=== PATIENT | female | born 1995 | race Caucasian/White ===

== ENCOUNTER → 2024-06-29 14:14 | Outpatient (REF) | payer OTHER, SELFPAY | LOC: HWRAD 14:14 | PROVIDERS: ATTENDING PHYSICIAN Nurse Practitioner Family; FAMILY PHYSICIAN Nurse Practitioner | DX: Z32.01 Encounter for pregnancy test, result positive (principal) | CPT/HCPCS: 76801; 76817 ==

== ENCOUNTER → 2024-07-12 13:55 | Outpatient (REF) | payer OTHER, SELFPAY | LOC: HWRAD 13:55 | PROVIDERS: ATTENDING PHYSICIAN Obstetrics & Gynecology; FAMILY PHYSICIAN Nurse Practitioner | DX: Z34.01 Encounter for supervision of normal first pregnancy, first trimester (principal) | CPT/HCPCS: 76801; 76817 ==

== ENCOUNTER 2024-07-16 23:41 | Emergency (ER) | payer OTHER, SELFPAY ==
[2024-07-16 23:42] VITALS: BP 117/72
--- NOTE | 2024-07-16 23:59 | ED.GENMED ---
History of Present Illness
<Juhi Ryan MD - Last Filed: 07/17/24 17:05>
General
Chief Complaint: Problems
Source: patient
Exam Limitations: none
Time Seen by Provider: 07/16/24 23:51
Nursing documentation reviewed up to this point in time: agreed with
History of Present Illness
History of Present Illness:
The patient is a 20-year-old female who is a who presents with heavy vaginal bleeding for about 8 hours. Patient reports that her second ultrasound showed that her is not progressing and she was told that she will likely miscarry.
Patient reports that it has been several weeks of spotting but today the bleeding got much heavier. Patient reports mild cramping.
Past History
<Juhi Ryan MD - Last Filed: 07/17/24 17:05>
Past History
ED Past Medical History: Cancer and GERD
ED Past Surgical History: Other
Social History
Tobacco: Non-smoker
Alcohol: None
Drug: None
Personal:
Living: with family
Employment: Other
Family History
Family History: Other
Review of Systems
<Juhi Ryan MD - Last Filed: 07/17/24 17:05>
Review of Systems
Allergies reviewed?: Yes
All Other Systems: ROS reviewed and negative except as documented in HPI and ROS
Constitutional: Reports no symptoms
EENT: Reports no symptoms
Respiratory: Reports no symptoms
Cardiac: Reports no symptoms
ABD/GI: Reports no symptoms
: Reports bleeding
Musculoskeletal: Reports no symptoms
Skin: Reports no symptoms
Neurological: Reports no symptoms
Endocrine: Reports no symptoms
Hematologic/Lymphatic: Reports no symptoms
Psychiatric: Reports no symptoms
Phy Exam
<Juhi Ryan MD - Last Filed: 07/17/24 17:05>
Physical Exam
Physical Exam:
Physical Exam
General: no apparent distress, not acutely ill
Neck: supple. no meningeal signs. normal psoterior pharynx
Heart: s1/s2 regular rate and rhythm, no murmur. equal radial pulses.
Lungs: no acute respiratory distress. clear bilaterally
Abdomen: normal bowel sounds. not tender. no CVAT
Neuro: alert and oriented. no focal neurological deficits
Skin: no rash
Psychiatric: well kept. interactive and cooperative
Extremities: no edema. no calf tenderness. negative homans. good distal pulses
Course
<Juhi Ryan MD - Last Filed: 07/17/24 17:05>
Orders/Labs/Results
Orders:
Orders
07/17/24 00:12
0.9% Sodium Chloride 1000 ml [Nss] 1,000 ml IV BOLUS
US 1st Trimester Urgent
Comment:
Reason For Exam: bleeding, miscarriage
07/17/24 00:45
ABO [Blood Group&Type] Urgent
Beta HCG Quantitative Urgent
Is this a screen?: No
Complete Blood Count/With Diff Urgent
07/17/24 02:25
ABO2 Urgent
BBK Wristband Number:
Associate notified that ABO2 has been ordered: [id number]
Date: 07/17/24
Time: 01:00
Solar Designer/Installer ID: [id number]
Abnormal Lab Results
07/17/24
00:45
RBC 4.18 L 10^6/uL
(4.20-5.40)
Hct 36.9 L %
(37.0-47.0)
MCH 32.3 H pg
(27.0-31.0)
Abs Immat Gran (auto) 0.1 H 10^3/uL
(0-0.05)
Absolute Lymphs (auto) 3.7 H 10^3/uL
(1.2-3.4)
07/17/24 00:45
Vital Signs
Initial and Last Documented VS:
Initial Vital Signs
Temp Pulse Resp BP Pulse Ox
97.8 F 76 18 117/72 100
07/16/24 23:42 07/16/24 23:42 07/16/24 23:42 07/16/24 23:42 07/16/24 23:42
Last Documented Vital Signs
Temp Pulse Resp BP Pulse Ox
97.8 F 76 18 121/58 100
07/16/24 23:42 07/16/24 23:42 07/16/24 23:42 07/17/24 02:16 07/17/24 02:46
Information
Weeks gestation: N/A
Location: N/A
<Alec Ramos, DO - Last Filed: 07/17/24 03:26>
Orders/Labs/Results
Orders:
Orders
07/17/24 00:12
0.9% Sodium Chloride 1000 ml [Nss] 1,000 ml IV BOLUS
US 1st Trimester Urgent
Comment:
Reason For Exam: bleeding, miscarriage
07/17/24 00:45
ABO [Blood Group&Type] Urgent
Beta HCG Quantitative Urgent
Is this a screen?: No
Complete Blood Count/With Diff Urgent
07/17/24 02:25
ABO2 Urgent
BBK Wristband Number:
Associate notified that ABO2 has been ordered: [id number]
Date: 07/17/24
Time: 01:00
Solar Designer/Installer ID: [id number]
Abnormal Lab Results
07/17/24
00:45
RBC 4.18 L 10^6/uL
(4.20-5.40)
Hct 36.9 L %
(37.0-47.0)
MCH 32.3 H pg
(27.0-31.0)
Abs Immat Gran (auto) 0.1 H 10^3/uL
(0-0.05)
Absolute Lymphs (auto) 3.7 H 10^3/uL
(1.2-3.4)
07/17/24 00:45
Vital Signs
Initial and Last Documented VS:
Initial Vital Signs
Temp Pulse Resp BP Pulse Ox
97.8 F 76 18 117/72 100
07/16/24 23:42 07/16/24 23:42 07/16/24 23:42 07/16/24 23:42 07/16/24 23:42
Last Documented Vital Signs
Temp Pulse Resp BP Pulse Ox
97.8 F 76 18 121/58 100
07/16/24 23:42 07/16/24 23:42 07/16/24 23:42 07/17/24 02:16 07/17/24 02:46
<Juhi Ryan MD - Last Filed: 07/17/24 17:05>
MDM/Problems Addressed
Differential Diagnosis Includes:
Complete miscarriage, incomplete miscarriage, ectopic
MDM/Problems Addressed:
Patient presents with acute on chronic vaginal bleeding related to an inviable
<Juhi Ryan MD - Last Filed: 07/17/24 17:05>
*Radiology
Radiology exam reviewed: radiology read reviewed
*Pulse Oximetry
Patient hypoxic: no
*EKG
Interpreted by ED Provider?: NA
*Materials Planning Manager Interpretation
Rate: Materials Planning Manager- N/A
*Critical Care Note
Total Time (30-74mins, 75-104mins- exclusive of procedures): Not Applicable
Data Reviewed
Review of Other/Old Records Reveals: Radiology Studies (Pelvic ultrasound reviewed from 07/12/2024 which shows no significant growth from prior ultrasound and no sign of pole)
Source: patient
<Juhi Ryan MD - Last Filed: 07/17/24 17:05>
Patient Management
Discussion with other providers: Other (Dr. Malagon agreed to see the patient)
<Alec Ramos DO - Last Filed: 07/17/24 03:26>
Update Note
Update Note:
Patient seen by Dr. Malagon. Recommends discharge. Patient did not wish to stay for D&C. Patient will contact Dr. Malagon on Thursday. Dr. Malagon went over discharge instructions as well as return to ER instructions.
ED Attending Note
<Juhi Ryan MD - Last Filed: 07/17/24 17:05>
-
Portions of this chart may have been created with voice recognition software.� Occasional wrong word or��sound alike� substitutions may have occurred due to the inherent limitations of voice recognition software.
Discharge Plan
Departure
Patient Disposition: Home (Routine Discharge)
Date of Disposition: 07/17/24
Time of Disposition: 03:
Patient with high blood pressure during this ER visit?: Yes
Discharge Problem:
Incomplete miscarriage
Instructions: Miscarriage (DC)
Referrals:
Estela Malagon DO [Active] -
Donya Real CRNP [Family Provider] -
Interventions
Interventions:
*Risk Screen - Suicide Last Done: 07/16/24 23:42
*General Assessment Last Done: 07/17/24 00:47
*Neglect/Abuse Screening Last Done: 07/16/24 23:42
*ED- Fall Risk Assessment Last Done: 07/17/24 00:47
*ED COVID-19 Vaccine History Last Done: 07/17/24 00:47
*Nursing Disposition Last Done: 07/17/24 03:44
ED-Female Genitourinary Assessment Last Done: 07/17/24 00:47
Discharge Date and Time
Discharge Date/Time: 07/17/24 03:44
Print Language: CHINESE
[2024-07-17] MEDS: NSS 1000 IV (00:46)
[2024-07-17 00:47] VITALS: BMI 21.2
[2024-07-17 00:49] VITALS: BP 118/67
[2024-07-17 01:00] VITALS: BP 109/60
[2024-07-17 01:00] LABS: % Basophils 0.8 % (0-2); % Eosinophils 1.4 % (0-6); % Immature Granulocytes 0.5 % (0-0.5); % Lymphocytes 34.1 % (20.5-51.1); % Monocytes 4.3 % (1.7-9.3); % Neutrophils 58.9 % (42.2-75.2); Absolute Basophils 0.1 10^3/uL (0-0.2); Absolute Eosinophils 0.2 10^3/uL (0-0.7); Absolute Immature Granulocytes 0.1 10^3/uL (0-0.05); Absolute Lymphocytes 3.7 10^3/uL (1.2-3.4); Absolute Monocytes 0.5 10^3/uL (0.1-0.6); Absolute Neutrophils 6.3 10^3/uL (1.4-6.5); Hematocrit 36.9 % (37.0-47.0); Hemoglobin 13.5 g/dL (12.0-16.0); Mean Corp Hgb Conc. 36.6 g/dL (33.0-37.0); Mean Corpuscular Hgb 32.3 pg (27.0-31.0); Mean Corpuscular Volume 88.3 fL (81.0-99.0); Nucleated Red Blood Cells % 0 %; Platelet Count 374 10^3/uL (130-400); Red Blood Cell Count 4.18 10^6/uL (4.20-5.40); Red Cell Dist. Width 11.9 % (11.5-14.5); White Blood Cell Count 10.7 10^3/uL (4.8-10.8)
[2024-07-17 02:16] VITALS: BP 121/58
--- NOTE | 2024-07-17 03:35 | CON.MD ---
Consultation - Medical
-
28yo female with LMP 9.6 wks ago presented to ER after contacting me to report feeling lightheaded at home and passing clots. She was diagnosed with missed miscarriage/blighted ovum (growth stopped at 5 wks and no progression over 2 US) and
opted to wait for spontaneous passage of tissue. She started spotting over this past week and then started passing larger sized clots yesterday. She denies any abdominal or pelvic pain and has not had too much cramping.
PMH: anxiety, skin cancer, fibroid 10mm
PSH: wisdom teeth
ALL: fluconazole-hives
Meds: PNV
SocHx: , Negative Tobacco, Etoh, drug use. FOrmer smoker/former e-cigarettes; vegetarian
Famhx: PGM- breast cancer; PGF-lung cancer; paternal uncle -lung cancer; mother -COPD, thyroid disease, osteoporosis; MGM-hysterectomy, sister-thyroid disease
ROS: passed several golf ball sized clots, episode of lightheadedness which resolved prior to coming to ER. Denies fever, chills, abdominal pain
PE: VSS afeb
abd: soft NDNT
SPeculum exam: small dark clot dime size in vaginal vault. No active bleeding.
Cervical os slightly dilated
UTerus approx 8 wk size, nontender
No adnexal fullness or tenderness
Hcg 5275 ( was 6429 on 07/16 from outside lab)
Blood type O pos
hgb 13.5
Pelvic US: Irregularly shaped sac in the endometrium with suspected pole EGA 6w2d by CRL, no detectable cardiac activity. Suspected small amount of surrounding blood products. No suspicious adnexal mass. No pelvic free fluid. Probable corpus
luteum in the left ovary. Otherwise ovaries appear normal with Doppler blood flow demonstrated bilaterally. Incidental anterior subserosal / exophytic fibroid measuring 1.1 x 0.7 cm.
A/P: Missed miscarriage/Inevitable ab
Counseled Mar and her , Manuel regarding findings and options.
HCG is falling and she has already started to bleed. She is hemodynamically stable and not actively bleeding.
Option to go home with expectant management and wait for spontaneous passage of tissue. Risks reviewed with this option including potential for prolonged bleeding, blood loss, emotional toll, incomplete passage of tissue or failed passage of tissue
with potential for needing surgical intervention. Option #2 cytotec/misoprostol medical induction or #3 performing D&E. Benefits and risks of these interventions reviewed. After discussion, she prefers to go home and see if she is able to pass
tissue naturally on her own. She was advised to call if dizziness or lighthededness or near syncope occurs or if saturating greater than a pad in less than an hour, for fever or chills or severe pain. She is aware that she has option to change her
mind and plan surgery if she does not pass tissue on her own. May need bloodwork or imaging repeated in that case. Aware to come to ER if near syncope, dizziness or lightheadedness return. Questions answered and she agrees to follow up with office
on Thursday to update on situation. Aware if passes tissue on her own, should have continued follow up with serial hcgs and follow up appt in 4-6 wks. Optimal timing to wait after resolution of this before trying to conceive reviewed 1-2
months.
Time face to face counseling, review of data, documentation on day of visit 45 min.
== END 2024-07-17 03:44 | disposition home or self-care (01) ==
LOC: EMR 23:41
PROVIDERS: EMERGENCY PHYSICIAN Emergency Medicine; FAMILY PHYSICIAN Nurse Practitioner; OTHER PHYSICIAN Obstetrics & Gynecology
DX: O03.4 Incomplete spontaneous abortion without complication (principal); Z87.891 Personal history of nicotine dependence
CPT/HCPCS: 96360; 99284; 76801; 84702; 85025; 86900; 86901

== ENCOUNTER 2024-07-25 06:19 | Day surgery (SDC) | payer OTHER, SELFPAY ==
[2024-07-25] VITALS (7 sets, daily range): BP systolic 95–122; BP diastolic 52–75; BMI 21.5
[2024-07-25] MEDS: NORMOSOL-R/PLASMALYTE-A 1000 IV (11:15)
[2024-07-25] MEDS: TYLENOL 1000 MG PO (11:20)
[2024-07-25] MEDS: NEURONTIN 300 MG PO (11:25)
[2024-07-25] MEDS: VIBRAMYCIN 270 MG IV (13:03)
--- NOTE | 2024-07-25 14:39 | W.IMMPOSTOP ---
Surgical Immed Post Op Note
-
Primary Surgeon: Estela Malagon DO
Assisting Surgeon: none
Pre-op Diagnosis: Missed miscarriage
Post-op Diagnosis: same
Procedure Performed: Dilation and evacuation with chromosomal studies.
Anesthesia Type: general LMA Dr. Workman
Specimen / Cultures: 1. products of conception sent for routine histology and also for chromosomal studies
Estimated Blood Loss: 20ml
Complications: none
Antibiotics: doxycycline 200mg IV preop
Operative Findings: Uterus sounded to 7 cm, POC visualized upon suction. small sac noted in tissue removed.
Counts correct times two.
Blood type O positive.
Counts correct times 2.
== END 2024-07-25 16:32 | disposition home or self-care (01) ==
LOC: SDS 06:19
PROVIDERS: ATTENDING PHYSICIAN Obstetrics & Gynecology
DX: O02.1 Missed abortion (principal)
CPT/HCPCS: 59820; 88305; 86850; 86900; 86901